=== PATIENT | female | born 1975 | race Caucasian/White ===

== ENCOUNTER 2017-02-20 15:17 | Emergency (ER) | payer SELFPAY ==
[2015-04-16 16:56] VITALS: BMI 39.1
[~2017-02-20 15:17] MED LIST: BENADRYL50 MG PO; IBUPROFEN800 MG PO; PERCOCET 10/3251 TA1 PO
== END 2017-02-20 15:30 | disposition left against medical advice (07) ==
LOC: D.ER 15:17
DX: T14.8 Other injury of unspecified body region (principal)